=== PATIENT | male | born 1985 | race African-American/Black ===

== ENCOUNTER 2017-04-21 16:32 | Emergency (ER) | payer BC, OTHER ==
[~2017-04-21] VITALS: Ht 182.9 cm; Wt 92.7 kg
[2017-04-21 16:32] VITALS: BP 144/85
[2017-04-21] MEDS ORDERED: MODA200T15 PO ×2 (16:52→17:36)
[2017-04-21] MEDS ORDERED: TRAM50TA2 PO (16:54)
[2017-04-21] MEDS ORDERED: IBUP-1022 PO (16:54)
== END 2017-04-21 17:55 | disposition home or self-care (01) ==
LOC: M ED 16:32
DX: Z76.0 Encounter for issue of repeat prescription (principal); G47.419 Narcolepsy without cataplexy; M77.9 Enthesopathy, unspecified; Z79.899 Other long term (current) drug therapy